=== PATIENT | male | born 1955 | race Caucasian/White ===

== ENCOUNTER 2017-12-30 08:27 | Inpatient (IN) ==
--- NOTE | 2017-12-29 21:31 | Discharge Summary ---
<Cindy Lama - Last Filed: 12/29/17 21:29> Date of Encounter: 12/29/17 - Discharge Diagnosis (1) Arthritis of knee, left Priority: Primary Status: Acute (2) Status post total knee replacement, left Priority: Primary Status: Acute (3) HTN (hypertension) Priority: Secondary Status: Chronic Qualifiers: Hypertension type: essential hypertension Qualified Code(s): I10 - Essential (primary) hypertension (4) CAD (coronary artery disease) Priority: Secondary Status: Chronic Qualifiers: Coronary Disease-Associated Artery/Lesion type: unspecified vessel or lesion type [place] vs. transplanted heart: unspecified whether [place] or transplanted heart Associated angina: angina presence unspecified Qualified Code(s): I25.10 - Atherosclerotic heart disease of [place] coronary artery without angina pectoris (5) KRISTEN (obstructive sleep apnea) Priority: Secondary Status: Chronic (6) Tobacco dependence Priority: Secondary Status: Chronic (7) Obesity Priority: Secondary Status: Chronic Qualifiers: Obesity type: unspecified obesity type Obesity classification: adult class 3 (BMI >= 40) Serious obesity comorbidity presence: unspecified whether serious comorbidity present Body mass index: unspecified BMI Qualified Code( s): E66.9 - Obesity, unspecified (8) History of ME (myocardial infarction) Priority: Secondary Status: Chronic (9) GERD (gastroesophageal reflux disease) Priority: Secondary Status: Chronic Qualifiers: Esophagitis presence: esophagitis presence not specified Qualified Code(s) : K21.9 - Gastro-esophageal reflux disease without esophagitis (10) Chronic anticoagulation Priority: Secondary Status: Chronic Comments: Resume Coumadin night of surgery. PT/INR (11) Gout Priority: Secondary Status: Chronic Qualifiers: Gout site: unspecified site Gout etiology: unspecified cause Chronicity: unspecified Qualified Code(s): M10.9 - Gout, unspecified (12) Chronic pain Priority: Secondary Status: Acute Comments: Holding chronic pain medication - Percoceo 5/325 TID LD: 12/02. Resume chronic pain medication POW#2 Qualifiers: Chronic pain type: other chronic pain Qualified Code(s): G89.29 - Other chronic pain - Hospital Course Hospital course: Mr. Daniels is a 62 year old male - Time Spent with Patient Total time spent providing and/or coordinating discharge services: - Discharge Medications Home Medications: Oxycodone HCl/Acetaminophen [Percocet 5-325 mg Tablet] 1 each PO QID 7 Days #28 tablet 12/29/17 [Rx] Allopurinol [Zyloprim 100 MG] 100 mg PO DAILY 12/30/17 [History] Bumetanide [Bumex] 1 mg PO BID 12/30/17 [History] Calcium Carbonate/Vitamin D3 [Calcium 600-Vit D3 400 Tablet] 1 tab PO DAILY [History] Carvedilol [Coreg] 6.25 mg PO BID 12/30/17 [History] Citalopram Hydrobromide [Citalopram HBr] 40 mg PO DAILY 12/30/17 [History] Colchicine [Colcrys] 0.6 mg PO DAILY 12/30/17 [History] Diltiazem HCl [Diltiazem 24Hr Cd] 240 mg PO DAILY 12/30/17 [History] Fluticasone/Salmeterol [Advair 250-50 Diskus] 2 puff IH BID 12/30/17 [History] Gabapentin [Neurontin] 300 mg PO TID 12/30/17 [History] Lovastatin [Mevacor] 20 mg PO HS 12/30/17 [History] Nitroglycerin 0.4 mg PO Q5M PRN 12/30/17 [History] Omeprazole [PriLOSEC] 40 mg PO DAILY 12/30/17 [History] OxyCODONE/APAP 5/325 [Percocet 5/325 MG] 1 tab PO Q8H PRN 12/30/17 [History] Trazodone HCl 100 mg PO HS 12/30/17 [History] Warfarin Sodium 5 mg PO HS 12/30/17 [History] hydrOXYzine HCl [Hydroxyzine HCl] 25 mg PO BID 12/30/17 [History] Allergies/Adverse Reactions: 3 Allergy/AdvReac Type Severity Reaction Status Date / Time acetaminophen [From Vicodin] Allergy Hives Verified 12/30/17 09:19 Buspirone Allergy Difficulty Verified 12/30/17 09:19 Breathing Erythromycin Base Allergy Hives Verified 12/30/17 09:19 [From Erythrocin] hydrocodone [From Vicodin] Allergy Hives Verified 12/30/17 09:19 PLATELET INFUSION SET Allergy Anaphylaxis Uncoded 12/30/17 09:19 Primary care physician: Shawn Leslie - Patient Status Disposition: Home, Self-Care Condition: Good - Discharge Instructions Follow Up With: Shawn Leslie MD [Primary Care Provider] - <MasonDio Lou - Last Filed: 12/31/17 06:41> Orders not resulted at time of discharge: Pending orders 12/30/17 00:01 XR knee LT limited 1-2V [XR] Routine H/H [Hemoglobin and Hematocrit] [HEME] Routine PT/INR [Prothrombin Time INR] [COAG] Routine 12/30/17 08:43 US anesthesia pain block [US] Routine Date of Encounter: 12/31/17 Time of Encounter: 06:41 - Discharge Diagnosis (1) Chronic pain Priority: Secondary Status: Acute Qualifiers: Chronic pain type: other chronic pain Qualified Code(s): G89.29 - Other chronic pain (2) Morbid obesity with BMI of 40.0-44.9, adult Priority: Secondary Status: Chronic (3) Arthritis of knee, left Priority: Primary Status: Chronic (4) Status post total knee replacement, left Priority: Primary Status: Acute (5) HTN (hypertension) Priority: Secondary Status: Chronic Qualifiers: Hypertension type: essential hypertension Qualified Code(s): I10 - Essential (primary) hypertension (6) CAD (coronary artery disease) Priority: Secondary Status: Chronic Qualifiers: Coronary Disease-Associated Artery/Lesion type: unspecified vessel or lesion type [place] vs. transplanted heart: unspecified whether [place] or transplanted heart Associated angina: angina presence unspecified Qualified Code(s): I25.10 - Atherosclerotic heart disease of [place] coronary artery without angina pectoris (7) KRISTEN (obstructive sleep apnea) Priority: Secondary Status: Chronic (8) Tobacco dependence Priority: Secondary Status: Chronic (9) History of ME (myocardial infarction) Priority: Secondary Status: Chronic (10) GERD (gastroesophageal reflux disease) Priority: Secondary Status: Chronic Qualifiers: Esophagitis presence: esophagitis presence not specified Qualified Code(s) : K21.9 - Gastro-esophageal reflux disease without esophagitis (11) Chronic anticoagulation Priority: Secondary Status: Chronic (12) Gout Status: Chronic Qualifiers: Gout site: unspecified site Gout etiology: unspecified cause Chronicity: unspecified Qualified Code(s): M10.9 - Gout, unspecified - Hospital Course Hospital course: Mr. Daniels is a 62 year old male Status post left total knee replacement The patient had an uneventful postoperative course. They received antibiotics and physical therapy and were discharged in stable condition. There will follow -up in the office in 2 weeks. - Time Spent with Patient Total time spent providing and/or coordinating discharge services: Primary care physician: Shawn Leslie - Patient Status Functional capacity at discharge: uses cane/walker Overall status at discharge: patient is progressing back to baseline
--- NOTE | 2017-12-30 08:17 | Anesthesia Evaluation PreOp ---
Date of Encounter: 12/30/17 Time of Encounter: 08:16 - Past History Planned Operation: Left Robotic Total Knee Cardiac History: IN (x3), HTN, Hyperlipidemia, Arrhythmia (AF), Cardiac Stent ( x3 last one 2007), Other (Cleared by Manager Shift) Pulmonary History: Smoker, Pack/yr (1 ppd x 30 years), COPD, KRISTEN Dx (CPAP 7) COLLISION ESTIMATOR History: Other (Depression, Insomnia) Other Medical History: GERD (PUD), Other (Morbid Obesity BMI-40.9) Anesthesia History: No Prior Anesthetic Complications, Past Anesthesia (R. TSR. R. TKR) Alcohol Use: none Drug use: none Medications and Allergies Oxycodone HCl/Acetaminophen [Percocet 5-325 mg Tablet] 1 each PO QID 7 Days #28 tablet 12/29/17 [Rx] Allopurinol [Zyloprim 100 MG] 100 mg PO DAILY 12/30/17 [History] Bumetanide [Bumex] 1 mg PO BID 12/30/17 [History] Calcium Carbonate/Vitamin D3 [Calcium 600-Vit D3 400 Tablet] 1 tab PO DAILY [History] Carvedilol [Coreg] 6.25 mg PO BID 12/30/17 [History] Citalopram Hydrobromide [Citalopram HBr] 40 mg PO DAILY 12/30/17 [History] Colchicine [Colcrys] 0.6 mg PO DAILY 12/30/17 [History] Diltiazem HCl [Diltiazem 24Hr Cd] 240 mg PO DAILY 12/30/17 [History] Fluticasone/Salmeterol [Advair 250-50 Diskus] 2 puff IH BID 12/30/17 [History] Gabapentin [Neurontin] 300 mg PO TID 12/30/17 [History] Lovastatin [Mevacor] 20 mg PO HS 12/30/17 [History] Nitroglycerin [Nitroglycerin] 0.4 mg PO Q5M PRN 12/30/17 [History] Omeprazole [PriLOSEC] 40 mg PO DAILY 12/30/17 [History] OxyCODONE/APAP 5/325 [Percocet 5/325 MG] 1 tab PO Q8H PRN 12/30/17 [History] Trazodone HCl 100 mg PO HS 12/30/17 [History] Warfarin Sodium [Warfarin Sodium] 5 mg PO HS 12/30/17 [History] hydrOXYzine HCl [Hydroxyzine HCl] 25 mg PO BID 12/30/17 [History] 3 Allergy/AdvReac Type Severity Reaction Status Date / Time acetaminophen [From Vicodin] Allergy Hives Verified 12/30/17 09:19 Buspirone Allergy Difficulty Verified 12/30/17 09:19 Breathing Erythromycin Base Allergy Hives Verified 12/30/17 09:19 [From Erythrocin] hydrocodone [From Vicodin] Allergy Hives Verified 12/30/17 09:19 PLATELET INFUSION SET Allergy Anaphylaxis Uncoded 12/30/17 09:19 - Meds/Allergy Pre-op Review Medications Reviewed: Yes Allergies Reviewed: Yes Beta Blockers on Current Med List: Yes If Beta Blockers taken, Date/Time (Last Dose taken): 05:30 12/30/2017 Anesthesia Results - Labs Laboratory Tests 12/24/17 12/24/17 12/24/17 11:06 11:06 11:18 WBC 7.3 Hgb 15.4 Hct 45.9 Plt Count 143 INR 2.1 Sodium 139 Potassium 4.5 Chloride 107 Carbon Dioxide 27 BUN 13 Creatinine 1.07 Cardiac Cath 2012 EF-40-45% Nonobstructive CAD Anesthesia Exam O2 Sat Height 1.7 m Height 1.7 m Weight 118.388 kg Weight 118.388 kg O2 Sat by Pulse Oximetry 97 Vital Signs Temp Pulse Resp BP Pulse Ox 98.3 F 87 18 135/83 97 12/30/17 08:50 12/30/17 08:50 12/30/17 08:50 12/30/17 08:50 12/30/17 08:50 NPO (# of Hours): > 8 hrs Pain Scale: 0 Pain Scale Used: Numeric (1 - 10) - HEENT Pupil (Motor): Pupils equal, EOMI Mallampati: III Teeth: Missing, Poor dentition Denture Type: Upper: Complete Oral Opening: Greater than 3 - COLLISION ESTIMATOR LOC: Oriented COLLISION ESTIMATOR Motor: Normal RUE, Normal LUE, Normal RLE, Normal LLE, Normal Face COLLISION ESTIMATOR Sensory: Normal: RUE, LUE, RLE, LLE, Face - Cardiac Rhythm: Irregular Murmur: None JVD: No Carotid Bruit: No - Pulmonary Breath Sounds: bilateral Clear Respiratory Effort: Symmetrical - Additional Findings SDtopped asa, coumadin 12/22/2017 Anesthesia Assess/Plan ASA Score: 4 Modified Benjy Scale for Level of Consciousness: Cooperative, oriented, and tranquil Anesthetic Plan: General, Regional (SAB, Left Adducter canal Block) Autologous Blood: Yes Monitoring Plan: Standard Monitors Recovery Plan: PACU
[2017-12-30] MEDS ORDERED: CeFAZolin Syr 2,000MG/20 ML 2,000 MG/20 ML SYRINGE IVPB ONE (09:02)
[2017-12-30] MEDS ORDERED: Albuterol 2.5 MG/3 ML NEBULIZER ONE (09:06)
[2017-12-30] MEDS: Ringers Solution, Lactated 1,000 ML IVC SCH ×2 (09:09→11:36)
[2017-12-30] MEDS: Albuterol 2.5 MG/3 ML NEBULIZER IH ONE ×2 (09:10→12:29)
[2017-12-30] MEDS ORDERED: Dexamethasone 4 MG/ML VIAL ONE (09:22)
[2017-12-30] MEDS ORDERED: Lidocaine -MPF 2% 2 ML VIAL ONE (09:22)
[2017-12-30] MEDS ORDERED: *HR* Midazolam HCl 2 MG/2 ML VIAL ONE (09:22)
[2017-12-30] MEDS ORDERED: *HR* FentaNYL (PF) 100 MCG/2 ML VIAL ONE ×3 (09:22→11:13)
[2017-12-30] MEDS ORDERED: Ondansetron 4 MG/2 ML VIAL ONE (09:22)
[2017-12-30] MEDS ORDERED: *HR* Propofol 200 MG/20 ML VIAL IVP ONE (09:24)
--- NOTE | 2017-12-30 09:27 | History & Physical Report ---
Date of Encounter: 12/30/17 Time of Encounter: 09:27 24 Hour HP Update - Instructions Instructions: If the History and Physical is less than 30 days old and was completed prior to A.M. admission and or procedure and has NOT been updated on calendar day of procedure please complete this update prior to performing procedure. - Update Patient reports changes in Medical Condition: No Changes in examination, assessment, or condition: No Changes in Medication: No Preop tests/diagnostics Reviewed: Yes Surgery Remains Indicated: Yes Consent for Planned Operative Procedure(s) Verified: Yes - Pre-Operative Checklist Preoperative Checklist Indicated: No Prophylactic Antibiotic Ordered: Yes Is VTE Prophylaxis Indicated?: Yes
[2017-12-30] MEDS ORDERED: Bupivacaine/Clonidine Syringe 1 EACH SYRINGE ONE (09:57)
[2017-12-30] MEDS ORDERED: ROPIVACAINE HCL/PF 0.5% 30 ML VIAL ONE (09:57)
[2017-12-30] MEDS ORDERED: Morphine Sulfate/PF 5mg/10mL Vial ONE (10:01)
[2017-12-30] MEDS ORDERED: Ethanol\\Acetic Acid\\Na Ace\\Ben 1,000 ML IRRIG.SOLN IR ONE (10:13)
[2017-12-30] MEDS ORDERED: Lidocaine -MPF 4% 5 ML AMPUL ONE (10:31)
[2017-12-30] MEDS ORDERED: *HR* Succinylcholine 200 MG/10 ML VIAL IVP ONE (10:31)
--- NOTE | 2017-12-30 10:55 | Anesthesia Procedures ---
Date of Encounter: 12/30/17 Time of Encounter: 10:15 Procedures: Anesthesia - Nerve Block Procedure Date: 12/30/17 Time: 10:15 Allergies/Adv Reactions: see chart Surgical Procedure: Left TKA Robot Checklist: Correct Patient Identifier, Correct procedure, History checked Correct side: Left Blood Thinner: No (off 8 days) Monitor Applied: EKG, BP, Pulse Oximetry Supplemental Oxygen via Nasal Cannula (L/min): 2 Sedation: Versed (mg): 2 Sedation: Fentanyl (mcg): 100 Indication: Post Op Analgesia (per dr. pablo) Pre-op Neuro Deficits: No Block Type: Other (Adductor canal and ipack) Catheter placed: No Sterile Technique: Yes Ultrasound used: Yes Anatomy identified: Yes Visual spread of Local: Yes Neuro Stimulation: No Blood on Needle Aspiration: No Smooth Injection of Local: Yes Pain with Injection of Local: No Prep: Chlorhexadine Needle: 22 x 50 mm Stimuplex (for ac), 21 x 100 mm Stimuplex (for ipack) Local: 0.25% Bupivicaine w/Clonidine 20 mcg/cc (20cc with 8mg decadron for ipack ), Ropivacaine (30cc 0.5% with 8mg decadron for AC) Volume (cc): 30, 20 Number of Attempts: 1 Complications: None/effective block Vitals: Vital Signs/O2 Sat/Glucose, Most Recent Temp Pulse Resp BP Pulse Ox 98.3 F 86 16 105/89 98 12/30/17 08:50 12/30/17 10:30 12/30/17 10:30 12/30/17 10:30 12/30/17 10:30 Comments: merged with [facility]
[2017-12-30] MEDS ORDERED: Ondansetron 4 MG/2 ML VIAL IVP ONE (10:56)
[2017-12-30] MEDS ORDERED: *HR* Promethazine 25 MG/ML VIAL IVP PRN (10:56)
[2017-12-30] MEDS ORDERED: Naloxone 0.4 MG/ML INJ IVP PRN ×2 (10:56→13:29)
[2017-12-30] MEDS ORDERED: Dexamethasone 4 MG/ML VIAL IVP ONE (10:56)
[2017-12-30] MEDS ORDERED: *HR* Labetalol 20 MG/4 ML SYRINGE IVP PRN (10:56)
[2017-12-30] MEDS ORDERED: Acetaminophen IV 1,000 MG/100 ML INFUS..BTL ONE (11:04)
--- NOTE | 2017-12-30 11:43 | Orthopedic Operative Note ---
Date of procedure: 12/30/17 Pre-op diagnosis: Left knee arthritis Post-op diagnosis: same Procedure: Procedure: Left robotic-assisted Total knee replacement Estimated blood loss: 300 cc Hardware: Metal and polyethylene replacement. [place] Femur: 7 Tibia: 7 TS insert: 9 Patella: 39 Exam Under anesthesia: 15 degrees varus 15 degree flexion contracture as calculated by the robot full flexion and no instability Procedural Notes: Grade 4 arthritic changes all 3 compartments. Operative procedure: The patient was brought to the operating room and placed on the operating room table. After general anesthesia was administered the operative knee was examined. Findings were noted in the exam under anesthesia. The operative extremity was prepped and draped in sterile surgical fashion. The patient received IV antibiotics prior to skin incision. A standard midline incision was made centered over the patella. The incision was made through the skin and subcutaneous tissue. A medial parapatellar tendon approach was performed. Care was taken to preserve tissue along the medial aspect of the patella. And to protect the patella tendon. The deep MCL was released off the medial tibia. The infra patella fat pad was excised. The patella was everted and cut was made at the level of the insertion of the quadriceps and patella tendon. The patella was sized the guide was seated and the lug holes are drilled. Knee was brought into flexion. Patient noted to have grade 4 arthritic changes all 3 compartments. Steinmann pins were placed in the tibia and the femur for the tibial and femoral arrays respectively. Checkpoints were also placed in the tibia and the femur for calculation purposes. The knee including the femur and the tibial registered. Osteophytes, ACL and PCL were excised at this point. Extension and flexion were assessed with a valgus stress components were adjusted on the computer to balance the knee. Femoral cuts were made first with robotic assistance, these included the anterior cut posterior cuts chamfer cuts. Tibial cut was then performed with robotic assistance as well. Bone fragments were removed, as well as the medial and lateral meniscus. The size 7 femoral guide was seated box cut was made lug holes are drilled. The size 7 tibial tray was seated and prepared with the fin cutter. Trial reduction with the 9 TS Emma revealed extension of 0 degree and 6 degrees varus full flexion. No varus valgus instability. Trial reduction revealed excellent patella tracking. All trial components were removed all bony surfaces were irrigated. The Tibia was seated followed by the femur, The Emma size 9 was seated and secured patella. Patient had similar findings for motion and stability. The knee was closed by the PA. The knee was then irrigated out with 2 L of pulse irrigation. The extensor mechanism was closed with #2 FiberWire suture and #2 PDS suture. The subcutaneous tissue was then irrigated and closed deep with #1 PDS suture superficially with 0 PDS suture and skin was closed with zip tie The patient was then placed in a sterile dressing and a postoperative brace extubated and transferred to recovery room in stable condition. Anesthesia: GETA Surgeon: Dio Cuevas Was there an embroidery assistant present: Yes Roofing Superintendent: Kourtney Gordon Estimated blood loss (cc): 300 Disposition: PACU
[2017-12-30] MEDS: *HR* HYDROmorphone (PF) 1 MG/ML SYRINGE IVP PRN ×4 (12:32→13:05)
[2017-12-30 12:54] LABS: Hematocrit 41.5 % (37.5-50.1)
[2017-12-30 12:55] LABS: Hemoglobin 13.8 g/dL (12.9-16.9)
[2017-12-30 13:03] LABS: INR 1.2; Prothrombin Time 12.8 Seconds (9.4-12.1)
--- NOTE | 2017-12-30 13:27 | Anesthesia Evaluation Post Op ---
Date of Encounter: 12/30/17 Time of Encounter: 13:26 - Vital Signs Vital Signs: Vital Signs/O2 Sat, Most Current Temp Pulse Resp BP Pulse Ox 96.8 F L 77 16 118/90 95 12/30/17 12:49 12/30/17 13:09 12/30/17 13:09 12/30/17 13:09 12/30/17 13:09 - Lungs Lungs: Clear Ascult./Percussion - Airway Airway: Non-obstructed - Cardiovascular Regular Rate - Mental Status Mental Status: Alert & Oriented, Answers Appropriately - Pain Pain Scale: 6 Pain Scale used: Numeric (1 - 10) - Nausea Vomiting Nausea Vomiting: Not Present - Hydration Hydration: Ice chips, Has not voided - Discharge PostOp Status: Transfer Patient to floor
[2017-12-30] MEDS ORDERED: MOM Conc 10 ML UD.LIQ PO PRN (13:29)
[2017-12-30] MEDS ORDERED: traMADol 50 MG TABLET PO PRN (13:29)
[2017-12-30] MEDS ORDERED: Temazepam 15 MG CAPSULE PO PRN (13:29)
[2017-12-30] MEDS ORDERED: Nitroglycerin 0.4 MG TAB.SUBL SL PRN (13:29)
[2017-12-30] MEDS ORDERED: Ringers Solution, Lactated 1,000 ML IVC SCH (13:29)
[2017-12-30] MEDS ORDERED: Ondansetron 4 MG/2 ML VIAL IVP PRN (13:29)
[2017-12-30] MEDS ORDERED: Sennosides 8.6 MG TABLET PO PRN (13:29)
[2017-12-30] MEDS: *HR* OxyCODONE Immed Rel 5 MG TABLET PO PRN (13:58)
[2017-12-30] MEDS: *HR* OxyCODONE/APAP 5/325 TABLET PO PRN (16:20)
[2017-12-30] MEDS: Gabapentin 300 MG CAPSULE PO SCH ×2 (16:20→20:17)
[2017-12-30] MEDS: *HR* Enoxaparin 30 MG/0.3 ML SYRINGE SQ SCH (16:20)
[2017-12-30] MEDS: CeFAZolin Syr 3,000MG/30 ML 3,000 MG/30 ML SYRINGE IVPB SCH (16:21)
[2017-12-30] MEDS ORDERED: *HR* Enoxaparin 30 MG/0.3 ML SYRINGE SQ SCH (18:00)
[2017-12-30] MEDS: hydrOXYzine pamoate 25 MG CAPSULE PO SCH (20:16)
[2017-12-30] MEDS: Bumetanide 1 MG TABLET PO SCH (20:17)
[2017-12-30] MEDS ORDERED: Budesonide/Formoterol 80/4.5 MDI IH SCH (21:00)
[2017-12-30] MEDS ORDERED: *HR* Warfarin 5 MG TABLET PO SCH (21:00)
[2017-12-30] MEDS ORDERED: traZODone 50 MG TABLET PO SCH (21:00)
[2017-12-31] MEDS: CeFAZolin Syr 3,000MG/30 ML 3,000 MG/30 ML SYRINGE IVPB SCH (00:06)
[2017-12-31 01:22] LABS: Hematocrit 35.5 % (37.5-50.1)
[2017-12-31 01:48] LABS: BUN/Creatinine Ratio 19 (6-26); Blood Urea Nitrogen 18 mg/dL (8-23); Calcium 9.8 mg/dL (8.6-10.3); Carbon Dioxide 23 mEq/L (23-29); Chloride 108 mEq/L (98-107); Glucose 187 mg/dL (70-105); Osmolality,Calculated 289 (280-300); Potassium 3.9 mEq/L (3.5-5.1); Sodium 136 mEq/L (136-145); eGFR For African Americans > 60 (> 60); eGFR For Non-African Americans > 60 (> 60)
[2017-12-31] MEDS: *HR* Enoxaparin 30 MG/0.3 ML SYRINGE SQ SCH (05:05)
[2017-12-31] MEDS: *HR* OxyCODONE/APAP 5/325 TABLET PO PRN (05:05)
--- NOTE | 2017-12-31 06:42 | Orthopedics Progress Note ---
Date of Encounter: 12/31/17 Time of Encounter: 06:41 - Assessment and Plan (1) Chronic pain Current Visit: No Status: Acute Qualifiers: Chronic pain type: other chronic pain Qualified Code(s): G89.29 - Other chronic pain (2) Morbid obesity with BMI of 40.0-44.9, adult Current Visit: Yes Status: Chronic (3) Arthritis of knee, left Current Visit: No Status: Chronic (4) Status post total knee replacement, left Current Visit: No Status: Acute (5) HTN (hypertension) Current Visit: No Status: Chronic Qualifiers: Hypertension type: essential hypertension Qualified Code(s): I10 - Essential (primary) hypertension (6) CAD (coronary artery disease) Current Visit: No Status: Chronic Qualifiers: Coronary Disease-Associated Artery/Lesion type: unspecified vessel or lesion type [place] vs. transplanted heart: unspecified whether [place] or transplanted heart Associated angina: angina presence unspecified Qualified Code(s): I25.10 - Atherosclerotic heart disease of [place] coronary artery without angina pectoris (7) KRISTEN (obstructive sleep apnea) Current Visit: No Status: Chronic (8) Tobacco dependence Current Visit: No Status: Chronic (9) History of [place] (myocardial infarction) Current Visit: No Status: Chronic (10) GERD (gastroesophageal reflux disease) Current Visit: No Status: Chronic Qualifiers: Esophagitis presence: esophagitis presence not specified Qualified Code(s) : K21.9 - Gastro-esophageal reflux disease without esophagitis (11) Chronic anticoagulation Current Visit: No Status: Chronic (12) Gout Current Visit: No Status: Chronic Qualifiers: Gout site: unspecified site Gout etiology: unspecified cause Chronicity: unspecified Qualified Code(s): M10.9 - Gout, unspecified Subjective Interval history: Patient was seen this morning doing well without complaints. Afebrile vital signs stable. Operative extremity: Neurovascularly intact Dressing clean dry and intact Calves nontender Assessment and plan: Continue with postoperative care Discharged today Objective Vital signs: Vital Signs Temp Pulse Resp BP Pulse Ox 12/31/17 06:35 97.8 F 92 18 119/87 97 12/31/17 04:31 97.9 F 85 17 117/85 96 12/30/17 23:33 98.3 F 73 18 122/79 94 12/30/17 19:02 98.3 F 88 18 153/110 99 12/30/17 16:40 97.4 F L 65 15 129/93 97 12/30/17 15:46 97.6 F 78 15 127/84 96 12/30/17 14:30 98.2 F 81 15 118/82 96 12/30/17 14:29 95 12/30/17 14:00 97.6 F 83 15 131/83 95 12/30/17 13:30 97.8 F 84 16 120/86 94 12/30/17 13:28 73 16 121/86 96 12/30/17 13:19 97.1 F L 76 18 120/87 95 12/30/17 13:09 77 16 118/90 95 12/30/17 12:59 71 16 109/74 95 12/30/17 12:49 96.8 F L 66 18 103/73 97 12/30/17 12:39 68 18 105/79 96 12/30/17 12:29 82 18 109/72 97 12/30/17 12:19 96.8 F L 88 20 117/85 95 12/30/17 10:30 86 16 105/89 98 12/30/17 09:55 75 16 107/71 94 12/30/17 09:19 18 135/83 97 12/30/17 08:50 98.3 F 87 18 135/83 97 Intake and Output 12/30/17 12/30/17 12/31/17 15:59 23:59 07:59 Intake Total 1020 / 1020 530 / 530 Output Total 300 / 300 1450 / 1450 1400 / 1400 Balance 720 / 720 -920 / -920 -1400 / -1400 Intake: IV Fluids 1020 / 1020 30 / 30 Lactated Ringers 1,000 ML @ 75 1000 / 1000 mls/hr IVC .[id number] MOUSTAPHA Rx#: [id number] Ancef Syringe 2,000 MG/20 ML 2, 20 / 20 000 mg In 20 ml @ 200 mls/hr IVPB PREOP ONE Rx#:[id number] Ancef Syringe 3,000 MG/30 ML 3, 30 / 30 000 mg In 30 ml @ 200 mls/hr IVPB Q8HR MOUSTAPHA Rx#:[id number] Oral 500 / 500 Output: Urine 1450 / 1450 1400 / 1400 Estimated Blood Loss 300 / 300 Other: Weight 118.388 kg - Labs CBC & BMP: 12/31/17 00:55 12/31/17 00:55 Labs: Abnormal lab results Hgb 12.0 g/dL (12.9-16.9) L D 12/31/17 00:55 Hct 35.5 % (37.5-50.1) L 12/31/17 00:55 PT 12.8 Seconds (9.4-12.1) H 12/30/17 12:32 Chloride 108 mEq/L (98-107) H 12/31/17 00:55 Glucose 187 mg/dL (70-105) H 12/31/17 00:55 - VTE Documentation of Mechanical Device: Venous foot pump, device Consult Discharge Plan - Plan Referrals: Shawn Leslie MD [Primary Care Provider] -
[2017-12-31] MEDS: Gabapentin 300 MG CAPSULE PO SCH (09:00)
[2017-12-31] MEDS ORDERED: Colchicine 0.6 MG TABLET PO SCH (09:00)
[2017-12-31] MEDS: Bumetanide 1 MG TABLET PO SCH (09:00)
[2017-12-31] MEDS ORDERED: Diltiazem CD (24hr) 240 MG CAPSULE PO SCH (09:00)
[2017-12-31] MEDS: hydrOXYzine pamoate 25 MG CAPSULE PO SCH (09:00)
[2017-12-31] MEDS: *HR* OxyCODONE Immed Rel 5 MG TABLET PO PRN (09:12)
[2017-12-31 11:15] VITALS: BP 131/89
--- NOTE | 2017-12-31 16:06 | Event Note ---
Date of Encounter: 12/31/17 Time of Encounter: 16:01 PCR - POD#1 - Left tkr Patient seen at bedside. Labs reviewed. Pain control: Lidoderm patch added prior to discharge Participating in PT. All questions and concerns addressed. Educated on use of incentive spirometer. Encouraged ambulation and proper hydration. Patient educated on post-operative restrictions and post-operative care. Discharge plan: d/c home today with OP PT.
== END 2017-12-31 14:46 | disposition home or self-care (01) | DRG 470 ==
LOC: SAMDAY 08:27 → 3NENU 13:30
PROVIDERS: ADMIT Orthopaedic Surgery; ATTEND Orthopaedic Surgery